=== PATIENT | male | born 1925 | race Caucasian/White ===

== ENCOUNTER 2016-08-14 16:37 | Emergency (ER) | payer MEDICARE, BC ==
--- NOTE | 2016-08-14 17:53 | UC ---
General HPI - HPI Summary HPI Summary: Pts daughter brings him here today because he has had increased confusion since waking this morning. his vital signs are stable, BP slightly low, but daughter states that is in his normal range, he is on metoprolol and he is SOB on exertion. 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 denies any pain. patient does feel cold requesting a blanket. - History of Current Complaint Chief Complaint: UCGeneralIllness Stated Complaint: SKIN COMPLAINT Time Seen by Provider: 08/14/16 17:23 Hx Obtained From: Patient Hx From Patient Unobtainable Due To: Dementia Onset/Duration: Sudden Onset, Lasting Hours Timing: Constant Onset Severity: Mild Current Severity: Moderate Associated Signs & Symptoms: Positive: Confusion, SOB - Allergy/Home Medications Allergies/Adverse Reactions: Allergies Allergy/AdvReac Type Severity Reaction Status Date / Time Niacin Allergy Unknown Unknown Verified 08/14/16 17:18 Reaction Details Home Medications: Home Medications Clotrimazole 1% TOPICAL (NF) [Lotrimin 1% TOPICAL (NF)] 1 applic TOPICAL DAILY 08/14/16 [History Confirmed 08/14/16] PMH/Surg Hx/FS Hx/Imm Hx Previously Healthy: Yes Cardiovascular History Of: Reports: Cardiac Disorders - uncertain, possible arrythmia Neurological History Of: Reports: Dementia - Surgical History Surgical History: Yes Surgery Procedure, Year, and Place: cryo surgery, palate growth removed, ear sx in college - Family History Known Family History: Positive: Hypertension - Social History Alcohol Use: None Substance Use Type: None Smoking Status (MU): Former Smoker Length of Time of Smoking/Using Tobacco: 30 YRS Have You Smoked in the Last Year: No When Did the Patient Quit Smoking/Using Tobacco: 42 YRS AGO. - Immunization History Most Recent Influenza Vaccination: Current for Season Review of Systems Constitutional: Chills, Fatigue Skin: Negative Eyes: Negative ENT: Negative Respiratory: Shortness Of Breath, Cough Cardiovascular: Negative Gastrointestinal: Negative Genitourinary: Negative Motor: Negative Neurovascular: Negative Musculoskeletal: Negative Neurological: Negative Psychological: Other - confused All Other Systems Reviewed And Are Negative: Yes Physical Exam Triage Information Reviewed: Yes Appearance: No Pain Distress, Well-Nourished, Ill-Appearing Vital Signs: Initial Vital Signs Temp 98.9 F 08/14/16 17:20 Pulse 75 08/14/16 17:20 Resp 22 08/14/16 17:20 BP 96/63 08/14/16 17:20 Pulse Ox 94 08/14/16 17:20 Vital Signs Reviewed: Yes Eye Exam: Normal Eyes: Positive: Conjunctiva Clear ENT Exam: Normal ENT: Positive: Hearing grossly normal, Pharyngeal erythema, TMs normal Dental Exam: Normal Neck exam: Normal Neck: Positive: Supple, Nontender, No Lymphadenopathy Respiratory: Positive: Chest non-tender, No respiratory distress - moderate with activity, mild at rest, Decreased breath sounds - in left lower lobe Cardiovascular Exam: Normal Cardiovascular: Positive: RRR, No Murmur, Pulses Normal Abdominal Exam: Normal Abdomen Description: Positive: Nontender, No Organomegaly, Soft Bowel Sounds: Positive: Present Musculoskeletal Exam: Normal Musculoskeletal: Positive: Strength Intact, ROM Intact, No Edema Neurological Exam: Normal Neurological: Positive: Alert, Muscle Tone Normal Psychological Exam: Normal Skin Exam: Normal Course/Dx - Course Course Of Treatment: hx obtained, exam performed,meds reviewed, EKG obtained, read by Dr Patel, CHest Xray shows non healed fractures of the right 3 ribs that were fractured from a fall a few months ago. as well as unchanged area of atelectasis, UA positive for leuks and ketones. Treated with Cipro and recommend follow up if not showing improvement in the next 24 -48 hours. - Differential Dx - Multi-Symptom Provider Diagnoses: UTI. disorientation. non healing rib fracture. right lung atelectasis Discharge - Discharge Plan Condition: Stable Disposition: HOME Patient Education Materials: Urinary Tract Infection in Men (ED) Additional Instructions: 1. You received a shot of rocephin today. 2. BEgin the Antibiotics today as well 3. Increase your fluid intake and get plenty of rest 4. Follow up with any increase in confusion, fever, decreased urine output or respiratory distress
[2016-08-14] MEDS ORDERED: cefTRIAXone VIAL(*) 1,000 MG VIAL IM ONE (18:29)
[2016-08-14] MEDS ORDERED: Lidocaine 1% MPF* 2 ML VIAL INJ ONE (18:29)
--- NOTE | 2016-08-14 18:37 | RAD ---
Indication: Shortness of breath. 2 views of the chest including dual energy PA views are reviewed and compared to previous exam dated April 13, 2015. No mediastinal shift is noted. There are right-sided rib fractures involving the right fifth and sixth rib posteriorly. Right basilar atelectasis is noted which is unchanged from previous exam. Left lung field is clear. IMPRESSION: Fractures of the right fifth and sixth and possibly seventh ribs. No displacement is noted. Persistent atelectasis in the right lung base. No pneumothorax is identified.
[2016-08-14] MEDS ORDERED: Lidocaine 1% MPF* 2 ML VIAL ONE (18:46)
[2016-08-14 19:17] VITALS: BP 150/66
--- NOTE | 2016-08-16 07:51 | UC ---
Progress - Progress Note Progress Note: no UTI NOTIFY PATIENT -STOP CIPRO -NEEDS TO SEE PMD IF STILL CONFUSED
== END 2016-08-14 19:20 | disposition home or self-care (01) ==
LOC: UCCORT 16:37
DX: N39.0 Urinary tract infection, site not specified (principal); R41.0 Disorientation, unspecified; S22.41XG Multiple fractures of ribs, right side, subsequent encounter for fracture with delayed healing; W19.XXXD Unspecified fall, subsequent encounter; J98.11 Atelectasis; F03.90 Unspecified dementia, unspecified severity, without behavioral disturbance, psychotic disturbance, mood disturbance, and anxiety; Z88.8 Allergy status to other drugs, medicaments and biological substances; Z87.891 Personal history of nicotine dependence
CPT/HCPCS: 71020; 81003; 87086; 93005; 96372; 99212; G0463; J0696

== ENCOUNTER 2016-09-22 14:53 | Emergency (ER) | payer MEDICARE, BC ==
--- NOTE | 2016-09-22 15:16 | UC ---
General HPI - HPI Summary HPI Summary: complaint of sore /bug bute that started approx 1 month ago seen by PCP and put on augmenyin ficnished course approx 10 days ago this morning there were small bubbles aorounf=d wound that have resoved - History of Current Complaint Chief Complaint: UCLowerExtremity Stated Complaint: SORE ON LEG Time Seen by Provider: 09/22/16 15:08 Hx Obtained From: Patient - Allergy/Home Medications Allergies/Adverse Reactions: Allergies Allergy/AdvReac Type Severity Reaction Status Date / Time Niacin Allergy Unknown Unknown Verified 08/14/16 17:18 Reaction Details Home Medications: Home Medications Nitroglycerin TAB 0.4 MG* 0.4 mg SL . NEEDED PRN 09/22/16 [History Confirmed 09/22/16] QUEtiapine TAB* [SEROquel TAB*] 25 mg PO BEDTIME PRN 09/22/16 [History Confirmed 09/22/16] PMH/Surg Hx/FS Hx/Imm Hx Previously Healthy: Yes - Surgical History Surgical History: Yes Surgery Procedure, Year, and Place: cryo surgery for prostate cancer, palate growth removed, ear sx in college - Family History Known Family History: Positive: Hypertension - Social History Alcohol Use: None Substance Use Type: None Smoking Status (MU): Former Smoker Length of Time of Smoking/Using Tobacco: 30 YRS Have You Smoked in the Last Year: No When Did the Patient Quit Smoking/Using Tobacco: 42 YRS AGO. - Immunization History Most Recent Influenza Vaccination: Current for 2015/2016 Season Review of Systems Constitutional: Negative Skin: Rash Eyes: Negative ENT: Negative Respiratory: Negative Cardiovascular: Negative Gastrointestinal: Negative Genitourinary: Negative Motor: Negative Neurovascular: Negative Musculoskeletal: Negative Neurological: Negative Psychological: Negative All Other Systems Reviewed And Are Negative: Yes Physical Exam Triage Information Reviewed: Yes Appearance: No Pain Distress, Well-Nourished Vital Signs Reviewed: Yes Neck: Positive: No Lymphadenopathy Respiratory: Positive: Lungs clear, Normal breath sounds, No respiratory distress Cardiovascular: Positive: RRR, No Murmur, Pulses Normal Abdomen Description: Positive: Nontender, Soft Bowel Sounds: Positive: Present Musculoskeletal: Positive: Edema @ - 1+ BLE Neurological: Positive: Alert Psychological Exam: Normal Skin Exam: Normal Course/Dx - Differential Dx - Multi-Symptom Provider Diagnoses: cellulitis- RLL Discharge - Discharge Plan Condition: Stable Disposition: HOME Patient Education Materials: Cellulitis (ED) Referrals: Santiago Argueta MD [Primary Care Provider] - Additional Instructions: continue to use bacitracin on wound daily return if any signs of infection worse-increase in redness, pain or you develop a fever Increase fluids and rest Take acetaminophen for pain if needed Please review your discharge instructions. If your symptoms do not improve please call your primary care provider or return to urgent care.
[2016-09-22 15:26] VITALS: BP 129/64
== END 2016-09-22 15:32 | disposition home or self-care (01) ==
LOC: UCCORT 14:53
DX: L03.116 Cellulitis of left lower limb (principal); Z87.891 Personal history of nicotine dependence
CPT/HCPCS: 99211; G0463

== ENCOUNTER 2016-11-23 08:54 | Emergency (ER) | payer MEDICARE, BC ==
--- NOTE | 2016-11-23 09:49 | RAD ---
HISTORY: Shoulder pain, right COMPARISONS: None VIEWS: 4, Frontal internal rotation, external rotation, outlet, and axillary views of the right shoulder FINDINGS: BONE DENSITY: There is diffuse osteopenia. BONES: There is no displaced fracture. JOINTS: There is advanced osteoarthritis of the A.C. and glenohumeral joints. There is complete effacement of the acromiohumeral interval. ALIGNMENT: There is no dislocation. SOFT TISSUES: Unremarkable. OTHER FINDINGS: The lung volumes are low IMPRESSION: 1. OSTEOPENIA. 2. ADVANCED OSTEOARTHRITIS. 3. THERE IS COMPLETE EFFACEMENT OF THE ACROMIOHUMERAL INTERVAL SUGGESTIVE OF CHRONIC ROTATOR CUFF INJURY.
--- NOTE | 2016-11-23 10:11 | UC ---
Upper Extremity HPI - HPI Summary HPI Summary: per bi analyst "RIGHT SHOULDER PAIN ALL THROUGHOUT THE SHOULDER X1 WEEK WITH LIMITED ROM. NO KNOWN TRAUMA. PT'S DAUGHTER STATES THAT HE LEANS ON THAT ARM A LOT WHILE SITTING. " Denies injury or fall. no relief with meloxicam 15mgs today. Hard to raise arms up over his head, but this is not new but chronic. He does have weakness in his legs and has had a hard time getting up out of a chair for many yrs. no h/o temporal arteritis or Fhx PMR. - History of Current Complaint Chief Complaint: UCUpperExtremity Stated Complaint: RIGHT SHOULDER PAIN Time Seen by Provider: 11/23/16 09:04 - Allergies/Home Medications Allergies/Adverse Reactions: Allergies Allergy/AdvReac Type Severity Reaction Status Date / Time Niacin Allergy Unknown Unknown Verified 11/23/16 09:01 Reaction Details Home Medications: Home Medications Acetaminophen [Acetaminophen Extra Stren] 500 mg PO Q4H PRN 11/23/16 [History Confirmed 11/23/16] Ibuprofen [Advil] 400 mg PO ONCE PRN 11/23/16 [History Confirmed 11/23/16] Meloxicam [Mobic] 15 mg PO ONCE PRN 11/23/16 [History Confirmed 11/23/16] PMH/Surg Hx/FS Hx/Imm Hx Previously Healthy: Yes Endocrine History: Dyslipidemia Cardiovascular History: Cardiac Disease Neurological History: Dementia, Other - + h/o falls Other Neurological History: falls - Surgical History Surgical History: Yes Surgery Procedure, Year, and Place: cryo surgery for prostate cancer, palate growth removed, ear sx in college - Family History Known Family History: Positive: Hypertension, Other - Mom had blood clots. CVAs - Social History Alcohol Use: None Substance Use Type: None Smoking Status (MU): Former Smoker Length of Time of Smoking/Using Tobacco: 30 YRS Have You Smoked in the Last Year: No When Did the Patient Quit Smoking/Using Tobacco: 42 YRS AGO. - Immunization History Most Recent Influenza Vaccination: Current for Season Review of Systems Constitutional: Negative Skin: Negative Eyes: Negative ENT: Negative Respiratory: Negative Cardiovascular: Negative Gastrointestinal: Negative Genitourinary: Negative Motor: Negative Neurovascular: Negative Musculoskeletal: Arthralgia Neurological: Negative Psychological: Negative All Other Systems Reviewed And Are Negative: Yes Physical Exam Triage Information Reviewed: Yes Completion Of Physical Exam Limited Due To: Dementia Appearance: Well-Appearing, Pain Distress - mild-moderate, very pleasant Vital Signs: Initial Vital Signs Temp 98.2 F 11/23/16 09:03 Pulse 94 11/23/16 09:03 Resp 18 11/23/16 09:03 BP 144/58 11/23/16 09:03 Pulse Ox 96 11/23/16 09:03 Eye Exam: Normal ENT Exam: Normal ENT: Positive: Pharynx normal Neck exam: Normal Neck: Positive: Supple, Nontender, No Lymphadenopathy Respiratory: Positive: Lungs clear, Normal breath sounds, No respiratory distress, No accessory muscle use. Negative: Crackles, Rhonchi, Stridor Cardiovascular: Positive: RRR Abdomen Description: Positive: Nontender, Soft Musculoskeletal: Positive: Other: - right shoulder point tenderness at AC joint. limited active ROM to 90 degress with flexion and abduction. limited external rotation, good internal rotation. no erythema or bruising Psychological Exam: Normal Skin Exam: Normal Upper Extremity Course/Dx - Course Course Of Treatment: Right shoulder xray: IMPRESSION: 1. OSTEOPENIA. 2. ADVANCED OSTEOARTHRITIS. 3. THERE IS COMPLETE EFFACEMENT OF THE ACROMIOHUMERAL INTERVAL SUGGESTIVE OF CHRONIC. ROTATOR CUFF INJURY.". pending ESR to eval for PMR. Today's pain is likely d/t OA/chronic shoulder injuries. However PMR should be r/o d/t proximal large joint weakness. -depo-medrol 80mgs to help with acute inflammation. - Differential Dx/Diagnosis Differential Diagnosis/HQI/PQRI: Arthritis, Bursitis, Contusion, Fracture ( Closed), Strain, Sprain, Other - tendonitis Provider Diagnoses: AC joint tendonitis, OA, chronic rotator cuff tear Discharge - Discharge Plan Condition: Stable Disposition: HOME Patient Education Materials: Arthralgia (ED), Shoulder Pain (ED) Referrals: Santiago Argueta MD [Primary Care Provider] - 2 Days Additional Instructions: Follow up with ortho 11/23/16 as a cortisone injection may be indicated. A sling may be helpful. Ice 20 mins on/20 mins off. You may try to give him some of the hydrocodone 5mgs he has at home under supervised conditions only for the severe pain. Don't give at bedtime b/c of his propensity to get up frequently as this can cause falls. I dont't think that this specific pain is due to polymyalgia rheumatica, but we have ordered an ESR to rule it out due to generalized weakness in proximal muscle groups at shoulders and hips. These symptoms could certainly be due to repitive injuries/chronic use with football, etc as well.
[2016-11-23] MEDS ORDERED: methylPREDNISolone ACETATE 80* 80 MG/ML 1 ML VIAL IM ONE (10:42)
[2016-11-23 11:14] VITALS: BP 107/54
== END 2016-11-23 11:17 | disposition home or self-care (01) ==
LOC: UCCORT 08:54
DX: M75.91 Shoulder lesion, unspecified, right shoulder (principal); M19.011 Primary osteoarthritis, right shoulder; M75.101 Unspecified rotator cuff tear or rupture of right shoulder, not specified as traumatic; E78.5 Hyperlipidemia, unspecified; I51.9 Heart disease, unspecified; F03.90 Unspecified dementia, unspecified severity, without behavioral disturbance, psychotic disturbance, mood disturbance, and anxiety; Z91.81 History of falling; Z88.8 Allergy status to other drugs, medicaments and biological substances; Z87.891 Personal history of nicotine dependence
CPT/HCPCS: 36415; 85652; 96372; 99213; G0463; J1040